=== PATIENT | male | born 1995 | race Two or more races ===

== ENCOUNTER 2017-07-22 09:07 | Emergency (ER) | payer OTHER ==
[~2017-07-22] VITALS: Ht 170.2 cm; Wt 77.1 kg
--- NOTE | 2017-07-22 09:29 | Emergency Room Report ---
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 N Clinical Suspician of Infection? N Mental Status: 1 - Regular (Normal Baseline) Sepsis Risk:Low Sepsis Risk Have you (or family members/close friends) recently traveled outside the [place]? N If Yes, where/when: Have you had exposure to infectious disease within the past month? N TB? Other? Specify: Comment History obtained through an life consultant. 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 He says he landed in a kneeling position and then fell backwards. His primary complaint is pain in his LEFT wrist and forearm. He also has some pain in his lower back and the LEFT lateral side of his neck. He denies any injury to head, chest, or abdomen. No numbness or weakness. ALLERGIES Coded Allergies: No Known Allergies (07/22/17) Home Medications Reported Medications No Known Home Medications History Medical History General CAD? No Angina: No SD: No Hypertension? No Hyperlipidemia? No CHF? No DVT? No PE? No COPD? No Asthma? No Anemia? No GERD? No Gastric ulcers? No GI Bleed? No Hernia? No Thyroid Problems? No Hypothyroidism? No CVA? No Seizures? No Diabetes? No Renal Insuffiency? No End Stage Renal Disease? No UTI? No Stones? No BPH? No GB Disease: No Nephritic Syndrome? No Asplenia? No Hepatitis? No Sickle Cell Disease? No Arthritis? No Migraines? No Cataracts? No Glaucoma? No MRSA? No HIV? No TB? No Anxiety? No Depression? No Cancer? No Site: N More? No Immunization Hx Ped.Immunizations UTD Yes DT/Tetanus Unknown Surgical Hx Previous Surgery?N Social History Smoking Hx Smoker: Never Smoker Tobacco: No Alcohol Alcohol: No Review of Systems All Other Systems Reviewed and Negative Respiratory denies shortness of breath Cardiovascular denies chest pain, denies syncope Gastrointestinal denies abdominal pain, denies vomiting Musculoskeletal back pain, neck pain Psychiatric/Neurological denies headache, denies numbness, denies weakness Physical Exam Vital Signs Vital Signs Date Time Temp Pulse Resp B/P Pulse O2 O2 Flow FiO2 Ox Delivery Rate 07/22 1050 97.9 69 14 128/66 99 07/22 1032 14 07/22 1004 97.9 69 18 130/67 99 07/22 0917 97.9 69 18 130/67 99 General Appearance mild distress Respiratory Status No: respiratory distress, non tender chest. Cardiovascular regular rate/rhythm, normal peripheral pulses Gastrointestinal non tender Extremities tenderness of the LEFT forearm without visible deformity. Skin intact. neurovascular status intact. 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 Yes Gideon was queried for this patient? No Reason not queried - emergent pt cond=no time Results/Orders Current Medication Orders Sig/Annette Start time Last Medication Dose Route Stop Time Status Admin Hydrocodone Bitart/ 0 .STK-MED ONE 07/22 1031 DC Acetaminophen PO Hydrocodone Bitart/ 1 TAB ONCE ONE 07/22 1030 DC 07/22 Acetaminophen PO 07/22 1031 1032 Orders Procedure Date/time Status DIET-NOTHING BY MOUTH 07/[address] SCAN REQ 07/22 944 Complete XRAY/CT/US XRAY/CT/US XRAY forearm Comment X-ray interpreted by radiologist: Minimal change and wrist likely due to old trauma. No fracture or dislocation. CT C-spine, L-spine Comment CT scan interpreted by radiologist: Cervical spine: Negative Lumbar spine: Negative Departure Departure Disposition DC Home or Self Care(routine) Clinical Impression Primary Impression: Left wrist sprain Qualifiers: Encounter type: initial encounter Qualified Code: S63.502A - Unspecified sprain of left wrist, initial encounter Secondary Impressions: Cervical strain Qualifiers: Encounter type: initial encounter Qualified Code: S16.1XXA - Strain of muscle, fascia and tendon at neck level, initial encounter Contusion of left forearm Qualifiers: Encounter type: initial encounter Qualified Code: S50.12XA - Contusion of left forearm, initial encounter Lumbar strain Qualifiers: Encounter type: initial encounter Qualified Code: S39.012A - Strain of muscle, fascia and tendon of lower back, initial encounter Condition STABLE Referrals Pettey MD,Ba Patient Instructions DI for Low Back Pain, DI for Neck Sprain, DI for Wrist Sprain Additional Instructions Off work until Tuesday07/25/17. Rest, ice, elevate arm for the next 2 days. Wrist brace and sling for 2 days. Follow-up with orthopedics if not improved in 3 days. Prescriptions Current Visit Scripts Ibuprofen (Ibuprofen 800MG) 800 MG PO Q8HP PRN pain #15 TAB ED Critical Care Critical Care No
--- NOTE | 2017-07-22 09:29 | Emergency Room Report ---
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 N Clinical Suspician of Infection? N Mental Status: 1 - Regular (Normal Baseline) Sepsis Risk:Low Sepsis Risk Have you (or family members/close friends) recently traveled outside the [place]? N If Yes, where/when: Have you had exposure to infectious disease within the past month? N TB? Other? 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 He says he landed in a kneeling position and then fell backwards. His primary complaint is pain in his LEFT wrist and forearm. He also has some pain in his lower back and the LEFT lateral side of his neck. He denies any injury to head, chest, or abdomen. No numbness or weakness. ALLERGIES Coded Allergies: No Known Allergies (07/22/17) Home Medications Reported Medications No Known Home Medications History Medical History General CAD? No Angina: No VA: No Hypertension? No Hyperlipidemia? No CHF? No DVT? No PE? No COPD? No Asthma? No Anemia? No GERD? No Gastric ulcers? No GI Bleed? No Hernia? No Thyroid Problems? No Hypothyroidism? No CVA? No Seizures? No Diabetes? No Renal Insuffiency? No End Stage Renal Disease? No UTI? No Stones? No BPH? No GB Disease: No Nephritic Syndrome? No Asplenia? No Hepatitis? No Sickle Cell Disease? No Arthritis? No Migraines? No Cataracts? No Glaucoma? No MRSA? No HIV? No TB? No Anxiety? No Depression? No Cancer? No Site: N More? No Immunization Hx Ped.Immunizations UTD Yes DT/Tetanus Unknown Surgical Hx Previous Surgery?N Social History Smoking Hx Smoker: Never Smoker Tobacco: No Alcohol Alcohol: No Review of Systems All Other Systems Reviewed and Negative Respiratory denies shortness of breath Cardiovascular denies chest pain, denies syncope Gastrointestinal denies abdominal pain, denies vomiting Musculoskeletal back pain, neck pain Psychiatric/Neurological denies headache, denies numbness, denies weakness Physical Exam Vital Signs Vital Signs Date Time Temp Pulse Resp B/P Pulse O2 O2 Flow FiO2 Ox Delivery Rate 07/22 1050 97.9 69 14 128/66 99 07/22 1032 14 07/22 1004 97.9 69 18 130/67 99 07/22 0917 97.9 69 18 130/67 99 General Appearance mild distress Respiratory Status No: respiratory distress, non tender chest. Cardiovascular regular rate/rhythm, normal peripheral pulses Gastrointestinal non tender Extremities tenderness of the LEFT forearm without visible deformity. Skin intact. neurovascular status intact. 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 Yes Gideon was queried for this patient? No Reason not queried - emergent pt cond=no time Results/Orders Current Medication Orders Sig/Annette Start time Last Medication Dose Route Stop Time Status Admin Hydrocodone Bitart/ 0 .STK-MED ONE 07/22 1031 DC Acetaminophen PO Hydrocodone Bitart/ 1 TAB ONCE ONE 07/22 1030 DC 07/22 Acetaminophen PO 07/22 1031 1032 Orders Procedure Date/time Status DIET-NOTHING BY MOUTH 07/[address] SCAN REQ 07/22 944 Complete XRAY/CT/US XRAY/CT/US XRAY forearm Comment X-ray interpreted by radiologist: Minimal change and wrist likely due to old trauma. No fracture or dislocation. CT C-spine, L-spine Comment CT scan interpreted by radiologist: Cervical spine: Negative Lumbar spine: Negative Departure Departure Disposition DC Home or Self Care(routine) Clinical Impression Primary Impression: Left wrist sprain Qualifiers: Encounter type: initial encounter Qualified Code: S63.502A - Unspecified sprain of left wrist, initial encounter Secondary Impressions: Cervical strain Qualifiers: Encounter type: initial encounter Qualified Code: S16.1XXA - Strain of muscle, fascia and tendon at neck level, initial encounter Contusion of left forearm Qualifiers: Encounter type: initial encounter Qualified Code: S50.12XA - Contusion of left forearm, initial encounter Lumbar strain Qualifiers: Encounter type: initial encounter Qualified Code: S39.012A - Strain of muscle, fascia and tendon of lower back, initial encounter Condition STABLE Referrals Pettey MD,Ba Patient Instructions DI for Low Back Pain, DI for Neck Sprain, DI for Wrist Sprain Additional Instructions Off work until Tuesday07/25/17. Rest, ice, elevate arm for the next 2 days. Wrist brace and sling for 2 days. Follow-up with orthopedics if not improved in 3 days. Prescriptions Current Visit Scripts Ibuprofen (Ibuprofen 800MG) 800 MG PO Q8HP PRN pain #15 TAB ED Critical Care Critical Care No
--- NOTE | 2017-07-22 10:38 | RADIOLOGY REPORT PS360 ---
CT CERVICAL SPINE W/O CONT COMPARISON: None HISTORY: Neck pain after a fall while hanging tobacco TECHNIQUE: Multiaxial scans of cervical spine were obtained. Sagittal coronal reformats were evaluated as well. FINDINGS: There is normal curvature and alignment. C1-C7 appear intact. Disc spaces are well maintained throughout. The spinal canal is normal in size throughout. There is no abnormal disc protrusion. The prevertebral soft tissues are normal and the odontoid is normal. IMPRESSION: Negative CT scan cervical spine.
--- NOTE | 2017-07-22 10:39 | RADIOLOGY REPORT PS360 ---
CT LUMBAR SPINE W/O CONTRAST COMPARISON: None HISTORY: Low back pain after a fall TECHNIQUE: Multiple axial scans of the lumbar spine were obtained. Sagittal and coronal reformats were evaluated as well. FINDINGS: There is normal curvature and alignment. All lumbar vertebrae appear intact and disc spaces are well maintained throughout. The spinal canal is normal size throughout. There is no degenerative change. The transverse processes all appear intact. The SI joints appear normal. IMPRESSION: Negative CT scan lumbar spine
--- NOTE | 2017-07-22 10:41 | RADIOLOGY REPORT PS360 ---
FOREARM-LT COMPARISON: None HISTORY: Left forearm pain after a fall TECHNIQUE: AP and lateral views FINDINGS: There is minor cortical irregularity of the articular surface of the radial styloid possibly due to old healed fracture. I see no acute fracture. The distal ulna appears intact as well. The proximal radius and ulna appear normal. The soft tissues are normal. IMPRESSION: Negative for acute fracture
[2017-07-22 11:19] VITALS: BP 121/65
--- OUTSIDE RECORDS SUMMARY | 2017-07-29 02:31 | External Medical Summary Rpt | CCD ---
Author Author [employer] Organization [employer] Address Unknown Phone Unavailable Purpose Continuity of Care Document - through 2016
--- OUTSIDE RECORDS SUMMARY | 2017-07-29 02:31 | External Medical Summary Rpt ---
Author Author CARLOS A Trinidad, [employer] Organization [employer] Address Unknown Phone Unavailable
--- OUTSIDE RECORDS SUMMARY | 2017-07-29 02:31 | External Medical Summary Rpt | CCD ---
Demographics Preferred Language Ukrainian Marital Status Unknown Church Affiliation Unknown Race Unknown Ethnic Group Unknown Author Author , CARLOS A STRAUSS Address Unknown Phone carlos Immunization No patient found.
--- OUTSIDE RECORDS SUMMARY | 2017-07-29 02:31 | External Medical Summary Rpt | CCD ---
Demographics Preferred Language Sami Marital Status Unknown Religion Affiliation Unknown Race Unknown Ethnic Group Unknown Author Author , CARLOS A STRAUSS Address Unknown Phone carlos Immunization No patient found.
--- OUTSIDE RECORDS SUMMARY | 2017-07-29 02:31 | External Medical Summary Rpt | CCD ---
Author Author , CARLOS A STRAUSS Address Unknown Phone [email or web address] Purpose Continuity of Care Document - through 2016
--- OUTSIDE RECORDS SUMMARY | 2017-07-29 02:31 | External Medical Summary Rpt | CCD ---
Author Author , CARLOS A STRAUSS Address Unknown Phone [email or web address] Purpose Continuity of Care Document - through 2016
== END 2017-07-22 11:20 | disposition home or self-care (01) ==
LOC: ER 09:07
DX: S16.1XXA Strain of muscle, fascia and tendon at neck level, initial encounter (principal); S66.912A Strain of unspecified muscle, fascia and tendon at wrist and hand level, left hand, initial encounter; S56.912A Strain of unspecified muscles, fascia and tendons at forearm level, left arm, initial encounter; S33.5XXA Sprain of ligaments of lumbar spine, initial encounter; W13.0XXA Fall from, out of or through balcony, initial encounter; Y93.H9 Activity, other involving exterior property and land maintenance, building and construction; Y92.71 Barn as the place of occurrence of the external cause; Y99.0 Civilian activity done for income or pay